=== PATIENT | female | born 1965 | race Caucasian/White ===

== ENCOUNTER 2016-10-22 09:11 | Inpatient (IN) | payer MEDICAID ==
[~2016-10-22] VITALS: Ht 157.5 cm; Wt 100.9 kg
[~2016-10-22 09:11] MED LIST: NITR-52 PO
[2016-10-22] MEDS ORDERED: SODIUM CHLORIDE 0.9% 500 ML IVB ONE (09:35)
[2016-10-22] MEDS ORDERED: PANTOPRAZOLE SODIUM 40 MG/10 ML VIAL IV ONE (09:45)
[2016-10-22] MEDS ORDERED: ONDANSETRON HCL 4 MG/2 ML VIAL IV ONE (09:45)
[2016-10-22] MEDS ORDERED: HYDROmorphone HCL 2 MG/ML VL IV ONE (09:45)
[2016-10-22 10:12] LABS: Basophils # (auto) 0 uL; Basophils % (auto) 0.1 % (0.0-2.0); Eosinophils # (auto) 0.1 uL; Eosinophils % (auto) 1.3 % (0.0-7.0); Hematocrit 50.8 % (36.0-46.0); Hemoglobin 16.2 g/dL (12.2-16.2); Lymphocytes # (auto) 1.3 uL; Lymphocytes % (auto) 17.6 % (10.0-50.0); Mean Corpuscular Hemoglobin 30.5 pg (28.0-32.0); Mean Corpuscular Hgb Conc. 31.9 g/dL (32.0-36.0); Mean Corpuscular Volume 95.6 fL (80.0-100.0); Mean Platelet Volume 8.1 fL (7.4-10.4); Monocytes # (auto) 0.2 uL; Monocytes % (auto) 2.4 % (0.0-12.0); Neutrophils % (auto) 78.6 % (37.0-80.0); Platelet Count (auto) 212 10^3/uL (140-450); Red Cell Distribution Width 14.9 % (11.6-16.0); White Blood Cell 7.7 10^3/uL (4.4-10.8)
[2016-10-22 10:14] LABS: Albumin 3.3 g/dL (3.4-5.0); Bilirubin, Total 0.8 mg/dL (0.2-1.0); Calcium 8.6 mg/dL (8.5-10.1); Potassium 3.6 mmol/L (3.5-5.1); Total Protein 7.8 g/dL (6.4-8.2)
[2016-10-22 10:35] LABS: Amylase 25 U/L (25-115)
[2016-10-22] MEDS ORDERED: metroNIDAZOLE 500MG/100ML 100 ML IV ONE (11:30)
[2016-10-22 11:57] LABS: Urine Blood Negative /uL (Negative); Urine Color Yellow (Yellow); Urine Glucose Normal (Normal); Urine Mucus FEW (None Seen); Urine Nitrite Negative (Negative); Urine RBC 1 /hpf (0 - 4); Urine Squamous Epithelial Cell MOD /hpf (<5)
[2016-10-22 12:21] LABS: Urine Bilirubin Negative (Negative); Urine Ketone 1+ (Negative)
[2016-10-22] MEDS ORDERED: ONDANSETRON HCL 4 MG/2 ML VIAL IV PRN (12:45)
[2016-10-22] MEDS ORDERED: MORPHINE SULF INJ 2 MG/ML SYRINGE 1ML IV PRN (12:45)
[2016-10-22] MEDS ORDERED: ACETAMINOPHEN 325 MG TAB PO PRN (12:45)
[2016-10-22] MEDS ORDERED: cefTRIAXone 1GM/50ML D5W 50 ML IV ONE (12:45)
[2016-10-22] MEDS ORDERED: TEMAZEPAM 15 MG CAP PO PRN (12:45)
[2016-10-22] MEDS ORDERED: MULTIPLE VITAMIN TAB PO ONE (13:15)
[2016-10-22] MEDS ORDERED: FAMOTIDINE 20 MG TAB PO ONE (13:15)
[2016-10-22] MEDS: metroNIDAZOLE 500MG/100ML 100 ML IV SCH ×2 (14:00→22:02)
[2016-10-22 14:02] VITALS: BP 116/46
[2016-10-22] MEDS: SODIUM CHLOR 0.9% PF (SALINE LOCK) 10ML VIAL IV SCH ×2 (14:41→22:01)
[2016-10-22] MEDS: BOOST PLUS 8 ounce PO SCH (18:28)
[2016-10-22] MEDS: ALBUTEROL SULF 2.5 MG/0.5ML(0.5%) NEB SOLN NEB SCH (20:30)
[2016-10-22 22:00] VITALS: BP 97/64
[2016-10-22] MEDS: FAMOTIDINE 20 MG TAB PO SCH (22:02)
[2016-10-23] MEDS: ALBUTEROL SULF 2.5 MG/0.5ML(0.5%) NEB SOLN NEB SCH ×4 (01:16→19:25)
[2016-10-23] MEDS: SODIUM CHLOR 0.9% PF (SALINE LOCK) 10ML VIAL IV SCH ×3 (05:30→21:32)
[2016-10-23] MEDS: metroNIDAZOLE 500MG/100ML 100 ML IV SCH ×3 (05:30→21:32)
[2016-10-23 06:00] VITALS: BP 103/64
[2016-10-23 06:46] LABS: Basophils # (auto) 0 uL; Basophils % (auto) 0.6 % (0.0-2.0); Eosinophils # (auto) 0.2 uL; Hematocrit 44.6 % (36.0-46.0); Hemoglobin 14.6 g/dL (12.2-16.2); Lymphocytes # (auto) 1.7 uL; Lymphocytes % (auto) 27.5 % (10.0-50.0); Mean Corpuscular Hemoglobin 31.8 pg (28.0-32.0); Mean Corpuscular Hgb Conc. 32.8 g/dL (32.0-36.0); Mean Platelet Volume 8.4 fL (7.4-10.4); Monocytes # (auto) 0.4 uL; Monocytes % (auto) 6.5 % (0.0-12.0); Neutrophils # (auto) 3.7 uL; Neutrophils % (auto) 62.4 % (37.0-80.0); Platelet Count (auto) 173 10^3/uL (140-450); Red Cell Distribution Width 14.6 % (11.6-16.0)
[2016-10-23 07:16] LABS: Albumin 2.8 g/dL (3.4-5.0); BUN/Creatinine Ratio 11.5; Bilirubin, Total 0.5 mg/dL (0.2-1.0); Calcium 8.4 mg/dL (8.5-10.1); Total Protein 6.6 g/dL (6.4-8.2)
[2016-10-23 08:00] VITALS: BP 101/71
[2016-10-23] MEDS: BOOST PLUS 8 ounce PO SCH ×3 (08:00→18:00)
[2016-10-23 09:05] VITALS: BP 101/71
[2016-10-23] MEDS: cefTRIAXone 1GM/50ML D5W 50 ML IV SCH (09:28)
[2016-10-23] MEDS: MULTIPLE VITAMIN TAB PO SCH (09:29)
[2016-10-23] MEDS: FAMOTIDINE 20 MG TAB PO SCH ×2 (09:30→21:32)
[2016-10-23] MEDS: HYDROcodone-ACET 5/325MG TAB PO PRN ×2 (09:31→19:49)
[2016-10-23 13:08] VITALS: BP 113/74
[2016-10-23 16:41] VITALS: BP 97/40
[2016-10-23 21:30] VITALS: BP 119/54
[2016-10-23] MEDS ORDERED: DOCUSATE SOD 100 MG CAP PO PRN (23:00)
[2016-10-24 05:07] VITALS: BP 111/65
[2016-10-24] MEDS: SODIUM CHLOR 0.9% PF (SALINE LOCK) 10ML VIAL IV SCH (05:40)
[2016-10-24] MEDS: metroNIDAZOLE 500MG/100ML 100 ML IV SCH (05:40)
[2016-10-24] MEDS: HYDROcodone-ACET 5/325MG TAB PO PRN (06:05)
[2016-10-24 06:40] LABS: Basophils # (auto) 0 uL; Basophils % (auto) 0.8 % (0.0-2.0); Eosinophils # (auto) 0.2 uL; Eosinophils % (auto) 3.8 % (0.0-7.0); Hemoglobin 14.7 g/dL (12.2-16.2); Lymphocytes # (auto) 1.6 uL; Lymphocytes % (auto) 32.4 % (10.0-50.0); Mean Corpuscular Hemoglobin 30.6 pg (28.0-32.0); Mean Corpuscular Hgb Conc. 31.3 g/dL (32.0-36.0); Mean Corpuscular Volume 97.8 fL (80.0-100.0); Mean Platelet Volume 8.4 fL (7.4-10.4); Monocytes # (auto) 0.3 uL; Monocytes % (auto) 6.2 % (0.0-12.0); Neutrophils # (auto) 2.7 uL; Neutrophils % (auto) 56.8 % (37.0-80.0); Platelet Count (auto) 194 10^3/uL (140-450); Red Cell Distribution Width 14.9 % (11.6-16.0); White Blood Cell 4.8 10^3/uL (4.4-10.8)
[2016-10-24] MEDS: ALBUTEROL SULF 2.5 MG/0.5ML(0.5%) NEB SOLN NEB SCH (06:40)
[2016-10-24 07:56] LABS: Albumin 2.9 g/dL (3.4-5.0); BUN/Creatinine Ratio 17.9; Bilirubin, Total 0.3 mg/dL (0.2-1.0); Calcium 8.5 mg/dL (8.5-10.1); Potassium 4.2 mmol/L (3.5-5.1); Total Protein 6.8 g/dL (6.4-8.2)
[2016-10-24] MEDS: BOOST PLUS 8 ounce PO SCH (08:13)
[2016-10-24] MEDS: cefTRIAXone 1GM/50ML D5W 50 ML IV SCH (09:00)
[2016-10-24 09:25] VITALS: BP 122/56
[2016-10-24] MEDS: MULTIPLE VITAMIN TAB PO SCH (09:48)
[2016-10-24] MEDS: FAMOTIDINE 20 MG TAB PO SCH (09:48)
[2016-10-24 10:59] VITALS: BP 122/56
== END 2016-10-24 12:00 | disposition home or self-care (01) | DRG 248 ==
LOC: ER 09:11 → OVERFLOW 09:12 → EAST 14:29
PROVIDERS: ADMIT Internal Medicine; ATTEND Internal Medicine
DX: A04.7 Enterocolitis due to Clostridium difficile (principal); E44.1 Mild protein-calorie malnutrition; I12.9 Hypertensive chronic kidney disease with stage 1 through stage 4 chronic kidney disease, or unspecified chronic kidney disease; J45.901 Unspecified asthma with (acute) exacerbation; K57.32 Diverticulitis of large intestine without perforation or abscess without bleeding; F17.210 Nicotine dependence, cigarettes, uncomplicated; K92.1 Melena; N18.2 Chronic kidney disease, stage 2 (mild); Z87.442 Personal history of urinary calculi; Z87.440 Personal history of urinary (tract) infections; Z88.7 Allergy status to serum and vaccine; Z80.9 Family history of malignant neoplasm, unspecified
CPT/HCPCS: 36415; 74176; 80053; 81001; 82150; 82270; 83690; 85025; 87040; 87086; 94640; 94761; 96361; 96365; 96367; 96375; C9113; J0696; J2405; J3490

== ENCOUNTER 2023-08-28 08:22 | Emergency (ER) | payer MEDICAID ==
[~2023-08-28] VITALS: Ht 157.5 cm; Wt 88.4 kg
[2023-08-28 10:00] VITALS: BP 134/66; PULSE 87; RESP 16; TEMP 97.8; O2SAT 94
[2023-08-28] MEDS ORDERED: ALBUAER3 IN (10:14)
[2023-08-28] MEDS ORDERED: BENZ100C97 PO (10:14)
[2023-08-28] MEDS ORDERED: AZITTAB PO (10:14)
[2023-08-28] MEDS ORDERED: PRED20TA2 PO (10:14)
== END 2023-08-28 10:22 | disposition home or self-care (01) ==
LOC: ER 08:22
DX: J20.9 Acute bronchitis, unspecified (principal); F17.210 Nicotine dependence, cigarettes, uncomplicated; Z87.442 Personal history of urinary calculi
CPT/HCPCS: 71045